=== PATIENT | male | born 1960 | race Caucasian/White ===

== ENCOUNTER → 2017-04-25 | Outpatient (CLI) | payer OTHER ==
[~2017-04-25] MED LIST: APRESOLINE50 MG PO; BENICAR40 MG PO; BYSTOLIC10 MG PO; CARDIZEM CD (T240 MG PO; CPAP INH; CYMBALTA60 MG PO; K-TAB 10MEQ10 MEQ PO; OXYGEN M-15 INH; PRAVACHOL40 MG PO
== END | disposition disaster alternative care site (69) ==
LOC: GRAD 15:41
DX: M16.0 Bilateral primary osteoarthritis of hip (principal)